=== PATIENT | male | born 1980 | race Caucasian/White ===

== ENCOUNTER 2017-02-24 23:22 | Emergency (ER) | payer OTHER ==
[2017-02-25 00:32] VITALS: BP 155/89
== END 2017-02-25 00:34 | disposition other institution (70) ==
LOC: ED 23:22
DX: F10.129 Alcohol abuse with intoxication, unspecified (principal)
CPT/HCPCS: Q0162

== ENCOUNTER 2017-02-24 23:22 | Emergency (ER) | payer OTHER | END 2017-02-25 00:33 | disposition other institution (70) | LOC: ED 23:22 | DX: Z02.89 Encounter for other administrative examinations (principal); F10.129 Alcohol abuse with intoxication, unspecified ==

== ENCOUNTER 2017-05-14 12:28 | Emergency (ER) | payer OTHER ==
[~2017-05-14] VITALS: Ht 195.6 cm; Wt 103.0 kg
[2017-05-14 14:44] VITALS: BP 136/89
== END 2017-05-14 14:44 | disposition home or self-care (01) ==
LOC: ED 12:28
DX: K43.9 Ventral hernia without obstruction or gangrene (principal); K21.9 Gastro-esophageal reflux disease without esophagitis; R50.9 Fever, unspecified

== ENCOUNTER 2017-05-19 15:10 | Emergency (ER) | payer OTHER ==
[2017-05-19 18:20] VITALS: BP 136/98
== END 2017-05-19 18:20 | disposition home or self-care (01) ==
LOC: ED 15:10
DX: K43.9 Ventral hernia without obstruction or gangrene (principal)

== ENCOUNTER 2017-06-04 21:04 | Inpatient (IN) | payer OTHER ==
[~2017-06-04] VITALS: Ht 195.6 cm; Wt 110.0 kg
[2017-06-04 21:44] LABS: PLATELET COUNT 199 x10^3mcL (130-400)
[2017-06-04 21:47] LABS: CALCIUM 9.3 mg/dL (8.5-10.1); CARBON DIOXIDE 28.1 mmol/L (21-32); CHLORIDE SERUM 97 mmol/L (98-107); CREATININE SERUM 0.9 mg/dL (0.7-1.3); GFR1 > 60 mL/min; GLUCOSE SERUM 110 mg/dL (74-106); POTASSIUM SERUM 3.9 mmol/L (3.5-5.1); SODIUM SERUM 138 mmol/L (136-145)
[2017-06-04 21:53] LABS: ALKALINE PHOSPHATASE 118 U/L (46-116); ALT/SGPT 52 U/L (16-63); AST/SGOT 79 U/L (15-37); BILIRUBIN TOTAL 1.6 mg/dL (0.20-1.00); TOTAL PROTEIN, SERUM 8.2 g/dL (6.4-8.2)
[2017-06-04 21:55] LABS: CHOLESTEROL 357 mg/dL (<200)
[2017-06-04 21:56] LABS: RED CELL DISTRIBUTION WIDTH 18.4 % (11.5-14.5)
[2017-06-04] MEDS ORDERED: XANAX0.5 MG PO (22:27)
[2017-06-04] MEDS ORDERED: NOR10T PO (22:27)
[2017-06-04] MEDS ORDERED: ATENOLOL50 MG PO (22:28)
[2017-06-04 22:37] LABS: BAND NEUTROPHIL 2 % (0-10); MONOCYTE 3 % (0-7); SEGMENTED NEUTROPHILS 60 % (37-75); rbc morphology (normal/abnorm) ABNORMAL (NORMAL)
[2017-06-04 23:05] LABS: T3 TOTAL 1.16 ng/mL
[2017-06-04 23:06] LABS: MAGNESIUM 1.6 mg/dL (1.8-2.4); PHOSPHOROUS 3.2 mg/dL (2.5-4.9)
[2017-06-04 23:07] LABS: CHOLESTEROL/HDL RATIO 2.3
[2017-06-04 23:11] VITALS: BP 124/88
[2017-06-04 23:17] LABS: FREE THYROXINE INDEX 2.9 ug/dL (1.4-4.5); T4(THYROXINE) 7.7 ug/dL (4.7-13.3)
[2017-06-04 23:25] VITALS: BP 124/88
[2017-06-05 04:49] VITALS: BP 123/85
[2017-06-05 05:46] LABS: UA SPECIFIC GRAVITY 1.015 (1.005-1.035); microscopic required? YES; urine erythrocyte 1+ (NEGATIVE)
[2017-06-05 05:52] LABS: AMPHETAMINE QUAL UR NONE DETECTED (NEG <=1000)
[2017-06-05 06:29] LABS: BASOPHIL % 0.7 % (0-2); PLATELET COUNT 174 x10^3mcL (130-400)
[2017-06-05 06:36] LABS: RED CELL DISTRIBUTION WIDTH 17.8 % (11.5-14.5)
[2017-06-05 06:52] LABS: CARBON DIOXIDE 27.7 mmol/L (21-32); CHLORIDE SERUM 100 mmol/L (98-107); CREATININE SERUM 0.8 mg/dL (0.7-1.3); GFR1 > 60 mL/min; GLUCOSE SERUM 90 mg/dL (74-106); MAGNESIUM 3.4 mg/dL (1.8-2.4); PHOSPHOROUS 2.7 mg/dL (2.5-4.9); POTASSIUM SERUM 3.5 mmol/L (3.5-5.1); SODIUM SERUM 136 mmol/L (136-145)
[2017-06-05 09:32] VITALS: BP 114/86
[2017-06-05 17:48] VITALS: BP 141/86
[2017-06-05 19:46] VITALS: BP 135/95
[2017-06-05 23:14] VITALS: BP 122/65
[2017-06-06 04:20] VITALS: BP 129/56
[2017-06-06 05:38] LABS: PLATELET COUNT 187 x10^3mcL (130-400)
[2017-06-06 05:46] LABS: BASOPHIL % 0 % (0-2); RED CELL DISTRIBUTION WIDTH 17.5 % (11.5-14.5)
[2017-06-06 05:49] LABS: CALCIUM 9.7 mg/dL (8.5-10.1); CARBON DIOXIDE 22.2 mmol/L (21-32); CHLORIDE SERUM 103 mmol/L (98-107); CREATININE SERUM 0.9 mg/dL (0.7-1.3); GFR1 > 60 mL/min; GLUCOSE SERUM 88 mg/dL (74-106); MAGNESIUM 2.2 mg/dL (1.8-2.4); PHOSPHOROUS 2.6 mg/dL (2.5-4.9); POTASSIUM SERUM 3.6 mmol/L (3.5-5.1); SODIUM SERUM 142 mmol/L (136-145)
[2017-06-06 08:00] VITALS: BP 141/92
[2017-06-06 12:23] VITALS: BP 121/83
[2017-06-06 16:00] VITALS: BP 165/87
[2017-06-06 20:00] VITALS: BP 129/83
[2017-06-07] VITALS (11 sets, daily range): BP systolic 81–152; BP diastolic 42–96
[2017-06-07 05:48] LABS: PLATELET COUNT 198 x10^3mcL (130-400)
[2017-06-07 05:59] LABS: CALCIUM 9.5 mg/dL (8.5-10.1); CARBON DIOXIDE 11.1 mmol/L (21-32); CHLORIDE SERUM 111 mmol/L (98-107); CREATININE SERUM 1.3 mg/dL (0.7-1.3); GFR1 > 60 mL/min; GLUCOSE SERUM 72 mg/dL (74-106); POTASSIUM SERUM 3.9 mmol/L (3.5-5.1); SODIUM SERUM 150 mmol/L (136-145)
[2017-06-07 06:02] LABS: RED CELL DISTRIBUTION WIDTH 17.7 % (11.5-14.5)
[2017-06-07 06:03] LABS: BASOPHIL % 0 % (0-2)
[2017-06-07] MEDS ORDERED: MORPHINE SULFAT15 MG (13:37)
[2017-06-08] VITALS (19 sets, daily range): BP systolic 100–140; BP diastolic 55–87
[2017-06-08 05:52] LABS: BASOPHIL % 0.1 % (0-2); PLATELET COUNT 198 x10^3mcL (130-400)
[2017-06-08 05:55] LABS: RED CELL DISTRIBUTION WIDTH 17.3 % (11.5-14.5)
[2017-06-08 05:58] LABS: CALCIUM 7.8 mg/dL (8.5-10.1); CARBON DIOXIDE 19.5 mmol/L (21-32); CREATININE SERUM 3.6 mg/dL (0.7-1.3); POTASSIUM SERUM 3.5 mmol/L (3.5-5.1)
[2017-06-09] VITALS (17 sets, daily range): BP systolic 113–134; BP diastolic 60–86
[2017-06-09 05:12] LABS: BASOPHIL % 0.1 % (0-2); PLATELET COUNT 195 x10^3mcL (130-400)
[2017-06-09 05:18] LABS: RED CELL DISTRIBUTION WIDTH 17.6 % (11.5-14.5)
[2017-06-09 05:19] LABS: CALCIUM 8.2 mg/dL (8.5-10.1); MAGNESIUM 2.5 mg/dL (1.8-2.4); PHOSPHOROUS 5.3 mg/dL (2.5-4.9); POTASSIUM SERUM 3.2 mmol/L (3.5-5.1)
[2017-06-09 05:27] LABS: CREATININE SERUM 4.1 mg/dL (0.7-1.3)
[2017-06-10] VITALS (7 sets, daily range): BP systolic 129–164; BP diastolic 77–94; Ht 195.6 cm; Wt 110.0 kg
[2017-06-10 04:59] LABS: CALCIUM 8.9 mg/dL (8.5-10.1); CARBON DIOXIDE 25.8 mmol/L (21-32); CREATININE SERUM 3.4 mg/dL (0.7-1.3); MAGNESIUM 2.3 mg/dL (1.8-2.4); PHOSPHOROUS 3.1 mg/dL (2.5-4.9); POTASSIUM SERUM 3.5 mmol/L (3.5-5.1)
[2017-06-10 05:01] LABS: BASOPHIL % 0.4 % (0-2); PLATELET COUNT 203 x10^3mcL (130-400)
[2017-06-10 05:06] LABS: RED CELL DISTRIBUTION WIDTH 17.4 % (11.5-14.5)
[2017-06-11 05:38] VITALS: BP 143/88
[2017-06-11 06:58] LABS: CALCIUM 8.9 mg/dL (8.5-10.1); CARBON DIOXIDE 24.9 mmol/L (21-32); CREATININE SERUM 2.5 mg/dL (0.7-1.3); PHOSPHOROUS 2.7 mg/dL (2.5-4.9)
[2017-06-11 06:59] LABS: POTASSIUM SERUM 2.9 mmol/L (3.5-5.1)
[2017-06-11 07:05] LABS: BASOPHIL % 0.4 % (0-2); PLATELET COUNT 219 x10^3mcL (130-400)
[2017-06-11 07:28] LABS: RED CELL DISTRIBUTION WIDTH 17.4 % (11.5-14.5)
[2017-06-11 09:26] VITALS: BP 128/68
[2017-06-11 13:37] VITALS: BP 143/96
[2017-06-11 13:53] VITALS: BP 128/68
[2017-06-11 14:44] LABS: CALCIUM 8.8 mg/dL (8.5-10.1); CARBON DIOXIDE 23.8 mmol/L (21-32); CREATININE SERUM 2.4 mg/dL (0.7-1.3); POTASSIUM SERUM 3.1 mmol/L (3.5-5.1)
[2017-06-11 17:18] VITALS: BP 143/99
== END 2017-06-11 18:28 | disposition home or self-care (01) | DRG 282 ==
LOC: ED 21:04 → IC 22:16 → DU 22:16 → IC 06-05 17:23 → DU 06-05 18:10 → IC 06-05 18:20 → DU 06-10 15:54
PROVIDERS: Specialist; ADMIT Family Medicine
PROC: 5A1945Z Respiratory Ventilation, 24-96 Consecutive Hours (ICD-10-PCS; principal; 2017-06-07)
PROC: 0BH17EZ Insertion of Endotracheal Airway into Trachea, Via Natural or Artificial Opening (ICD-10-PCS; 2017-06-07)
PROC: 02HV33Z Insertion of Infusion Device into Superior Vena Cava, Percutaneous Approach (ICD-10-PCS; 2017-06-07)
PROC: B548ZZA Ultrasonography of Superior Vena Cava, Guidance (ICD-10-PCS; 2017-06-07)
DX: K85.90 Acute pancreatitis without necrosis or infection, unspecified (principal); N17.0 Acute kidney failure with tubular necrosis; J96.01 Acute respiratory failure with hypoxia; J69.0 Pneumonitis due to inhalation of food and vomit; G92 Toxic encephalopathy; R56.9 Unspecified convulsions; F10.231 Alcohol dependence with withdrawal delirium; E83.42 Hypomagnesemia; I10 Essential (primary) hypertension; E78.5 Hyperlipidemia, unspecified; R74.0 Nonspecific elevation of levels of transaminase and lactic acid dehydrogenase [LDH]; G90.9 Disorder of the autonomic nervous system, unspecified; K43.2 Incisional hernia without obstruction or gangrene; F41.1 Generalized anxiety disorder; I16.0 Hypertensive urgency; E83.41 Hypermagnesemia; R65.10 Systemic inflammatory response syndrome (SIRS) of non-infectious origin without acute organ dysfunction; E87.2 Acidosis; D64.9 Anemia, unspecified; E87.8 Other disorders of electrolyte and fluid balance, not elsewhere classified; E87.0 Hyperosmolality and hypernatremia; E87.6 Hypokalemia; E83.39 Other disorders of phosphorus metabolism; M62.82 Rhabdomyolysis
CPT/HCPCS: 36556; 36600; 83880; 84439; 97110-GP; A4628; G0480; J0360; J1200; J1630; J1642; J2060; J2250; J2270; J2405; J2543; J2704; J3411; J3475; J3480; J3486; J3490; J7030; J7040; Q0092

== ENCOUNTER 2017-08-02 21:15 | Inpatient (IN) | payer OTHER ==
[~2017-08-02] VITALS: Ht 195.6 cm; Wt 102.1 kg
[~2017-08-02 21:15] MED LIST: ATENOLOL50 MG PO; MORPHINE SULFAT15 MG; NOR10T PO; XANAX0.5 MG PO
[2017-08-02 21:21] VITALS: Ht 195.6 cm; Wt 102.1 kg
[2017-08-02 22:27] LABS: BASOPHIL % 0.3 % (0-2)
[2017-08-02 22:35] LABS: PLATELET COUNT 96 x10^3mcL (130-400); RED CELL DISTRIBUTION WIDTH 17.1 % (11.5-14.5)
[2017-08-02 22:42] LABS: CALCIUM 8.1 mg/dL (8.5-10.1); CARBON DIOXIDE 23.8 mmol/L (21-32); CHLORIDE SERUM 99 mmol/L (98-107); CREATININE SERUM 0.7 mg/dL (0.7-1.3); GFR1 > 60 mL/min; GLUCOSE SERUM 110 mg/dL (74-106); POTASSIUM SERUM 3.5 mmol/L (3.5-5.1); SODIUM SERUM 138 mmol/L (136-145)
[2017-08-02 22:49] LABS: ALBUMIN 3.9 g/dL (3.4-5.0); ALKALINE PHOSPHATASE 135 U/L (46-116); ALT/SGPT 29 U/L (16-63); AST/SGOT 91 U/L (15-37); BILIRUBIN TOTAL 0.9 mg/dL (0.20-1.00); TOTAL PROTEIN, SERUM 8.1 g/dL (6.4-8.2)
[2017-08-02 22:51] LABS: CHOLESTEROL 230 mg/dL (<200)
[2017-08-02 22:52] LABS: T3 TOTAL 0.74 ng/mL
[2017-08-02 23:27] LABS: FREE T4 0.76 ng/dL (0.76-1.46); T4(THYROXINE) 5.3 ug/dL (4.7-13.3)
[2017-08-02 23:37] LABS: AMPHETAMINE QUAL UR NONE DETECTED (NEG <=1000)
[2017-08-02 23:47] VITALS: BP 138/93
[2017-08-02 23:56] VITALS: BP 139/93
[2017-08-03 00:41] LABS: MAGNESIUM 1.8 mg/dL (1.8-2.4); PHOSPHOROUS 3.2 mg/dL (2.5-4.9)
[2017-08-03 02:44] LABS: UA SPECIFIC GRAVITY <=1.005 (1.005-1.035); microscopic required? YES; urine erythrocyte 1+ (NEGATIVE)
[2017-08-03 03:50] LABS: BASOPHIL % 0.2 % (0-2)
[2017-08-03 03:57] LABS: PLATELET COUNT 85 x10^3mcL (130-400); RED CELL DISTRIBUTION WIDTH 17.6 % (11.5-14.5)
[2017-08-03 04:14] LABS: CALCIUM 7.9 mg/dL (8.5-10.1); CARBON DIOXIDE 26.4 mmol/L (21-32); CHLORIDE SERUM 100 mmol/L (98-107); CREATININE SERUM 0.7 mg/dL (0.7-1.3); GFR1 > 60 mL/min; GLUCOSE SERUM 97 mg/dL (74-106); POTASSIUM SERUM 3.5 mmol/L (3.5-5.1); SODIUM SERUM 139 mmol/L (136-145)
[2017-08-03 05:37] VITALS: BP 106/66
[2017-08-03 09:56] VITALS: BP 105/69
[2017-08-03 17:55] VITALS: BP 131/82
[2017-08-03 19:25] VITALS: BP 138/79
[2017-08-04 05:33] VITALS: BP 125/84
[2017-08-04 07:22] LABS: BASOPHIL % 0.1 % (0-2)
[2017-08-04 07:52] LABS: CALCIUM 9.2 mg/dL (8.5-10.1); CARBON DIOXIDE 25.9 mmol/L (21-32); CHLORIDE SERUM 97 mmol/L (98-107); CREATININE SERUM 0.6 mg/dL (0.7-1.3); GFR1 > 60 mL/min; GLUCOSE SERUM 111 mg/dL (74-106); MAGNESIUM 1.6 mg/dL (1.8-2.4); PHOSPHOROUS 3.2 mg/dL (2.5-4.9); POTASSIUM SERUM 3.2 mmol/L (3.5-5.1); SODIUM SERUM 132 mmol/L (136-145)
[2017-08-04 08:36] LABS: PLATELET COUNT 94 x10^3mcL (130-400); RED CELL DISTRIBUTION WIDTH 16.7 % (11.5-14.5)
[2017-08-04 09:03] VITALS: BP 114/79
[2017-08-04 17:37] VITALS: BP 120/87
[2017-08-04 20:59] VITALS: BP 120/77
[2017-08-05 05:40] VITALS: BP 121/86
[2017-08-05 08:01] LABS: CALCIUM 8.9 mg/dL (8.5-10.1); CARBON DIOXIDE 23.3 mmol/L (21-32); CHLORIDE SERUM 102 mmol/L (98-107); CREATININE SERUM 0.6 mg/dL (0.7-1.3); GFR1 > 60 mL/min; GLUCOSE SERUM 100 mg/dL (74-106); MAGNESIUM 1.9 mg/dL (1.8-2.4); PHOSPHOROUS 3.8 mg/dL (2.5-4.9); POTASSIUM SERUM 3.9 mmol/L (3.5-5.1); SODIUM SERUM 138 mmol/L (136-145)
[2017-08-05 08:54] VITALS: BP 110/74
[2017-08-05 09:20] LABS: BASOPHIL % 0.3 % (0-2); PLATELET COUNT 134 x10^3mcL (130-400)
[2017-08-05 09:59] VITALS: BP 110/74
[2017-08-05] MEDS ORDERED: PHARMASSURE FO0.4 MG PO (10:11)
[2017-08-05] MEDS ORDERED: THIAMINE HCL50 MG PO (10:11)
[2017-08-05] MEDS ORDERED: NATURE'S BLEND1 TA4 PO (10:12)
== END 2017-08-05 11:07 | disposition home or self-care (01) | DRG 773 ==
LOC: ED 21:15 → DU 23:05 → MU 08-03 12:34
PROVIDERS: Family Medicine; Specialist
DX: F10.229 Alcohol dependence with intoxication, unspecified (principal); F11.20 Opioid dependence, uncomplicated; N17.0 Acute kidney failure with tubular necrosis; G92 Toxic encephalopathy; K70.0 Alcoholic fatty liver; D69.59 Other secondary thrombocytopenia; K43.2 Incisional hernia without obstruction or gangrene; E78.5 Hyperlipidemia, unspecified; T51.0X1A Toxic effect of ethanol, accidental (unintentional), initial encounter; Z85.828 Personal history of other malignant neoplasm of skin; F17.200 Nicotine dependence, unspecified, uncomplicated; D64.9 Anemia, unspecified
CPT/HCPCS: 83880; 84439; 97110-GP; G0480; J2060; J2405; J3411; J3475; J3490; J7030

== ENCOUNTER 2018-01-13 18:10 | Inpatient (IN) | payer OTHER ==
[~2018-01-13] VITALS: Ht 195.6 cm; Wt 110.8 kg
[~2018-01-13 18:10] MED LIST changes: +NATURE'S BLEND1 TA4 PO; +PHARMASSURE FO0.4 MG PO; +THIAMINE HCL50 MG PO
[2018-01-13 19:51] LABS: CALCIUM 8.3 mg/dL (8.5-10.1); CARBON DIOXIDE 24.9 mmol/L (21-32); CHLORIDE SERUM 104 mmol/L (98-107); CREATININE SERUM 0.8 mg/dL (0.7-1.3); GFR1 > 60 mL/min; GLUCOSE SERUM 100 mg/dL (74-106); POTASSIUM SERUM 3.7 mmol/L (3.5-5.1); SODIUM SERUM 143 mmol/L (136-145)
[2018-01-13 19:52] LABS: BASOPHIL % 2.2 % (0-2); RED CELL DISTRIBUTION WIDTH 15.9 % (11.5-14.5)
[2018-01-13 19:53] LABS: PLATELET COUNT 114 x10^3mcL (130-400)
[2018-01-13] MEDS ORDERED: ATENOLOL50 MG PO (20:02)
[2018-01-13 20:04] LABS: ALBUMIN 3.7 g/dL (3.4-5.0); ALKALINE PHOSPHATASE 133 U/L (46-116); ALT/SGPT 51 U/L (16-63); AST/SGOT 63 U/L (15-37); BILIRUBIN TOTAL 0.7 mg/dL (0.20-1.00); FREE T4 0.73 ng/dL (0.76-1.46); TOTAL PROTEIN, SERUM 7.5 g/dL (6.4-8.2)
[2018-01-13 20:07] LABS: microscopic required? YES; urine erythrocyte TRACE (NEGATIVE)
[2018-01-13 20:15] LABS: AMPHETAMINE QUAL UR NONE DETECTED (See below)
[2018-01-13 21:50] LABS: CHOLESTEROL/HDL RATIO 3.2; MAGNESIUM 1.8 mg/dL (1.8-2.4); PHOSPHOROUS 3.4 mg/dL (2.5-4.9)
[2018-01-13 22:13] VITALS: BP 127/87
[2018-01-13 23:33] VITALS: BP 112/80
[2018-01-13 23:57] VITALS: BP 132/94
[2018-01-14 05:27] VITALS: BP 100/68
[2018-01-14 06:47] LABS: CALCIUM 8.5 mg/dL (8.5-10.1); CARBON DIOXIDE 22.2 mmol/L (21-32); CHLORIDE SERUM 101 mmol/L (98-107); CREATININE SERUM 0.8 mg/dL (0.7-1.3); GFR1 > 60 mL/min; GLUCOSE SERUM 75 mg/dL (74-106); MAGNESIUM 1.6 mg/dL (1.8-2.4); PHOSPHOROUS 3.4 mg/dL (2.5-4.9); POTASSIUM SERUM 3.5 mmol/L (3.5-5.1); SODIUM SERUM 138 mmol/L (136-145)
[2018-01-14 07:05] LABS: IRON 54 ug/dL (65-170); TOTAL IRON BINDING CAPACITY 306 ug/dL (250-450)
[2018-01-14 07:35] LABS: BASOPHIL % 0.5 % (0-2); PLATELET COUNT 151 x10^3mcL (130-400); RED BLOOD CELLS 4.41 M/mm3 (4.52-5.90)
[2018-01-14 07:39] LABS: RED CELL DISTRIBUTION WIDTH 15.3 % (11.5-14.5)
[2018-01-14 09:29] VITALS: BP 130/81
[2018-01-14 13:13] VITALS: BP 117/76
[2018-01-14 16:37] VITALS: BP 125/75
[2018-01-14 20:14] VITALS: BP 139/83
[2018-01-15 03:21] VITALS: BP 137/88
[2018-01-15 05:27] VITALS: BP 122/77
[2018-01-15 06:07] LABS: BASOPHIL % 0.2 % (0-2); PLATELET COUNT 154 x10^3mcL (130-400)
[2018-01-15 06:12] LABS: CALCIUM 8.6 mg/dL (8.5-10.1); CARBON DIOXIDE 26.6 mmol/L (21-32); CHLORIDE SERUM 101 mmol/L (98-107); CREATININE SERUM 0.8 mg/dL (0.7-1.3); GFR1 > 60 mL/min; GLUCOSE SERUM 95 mg/dL (74-106); PHOSPHOROUS 3.8 mg/dL (2.5-4.9); POTASSIUM SERUM 3.8 mmol/L (3.5-5.1); SODIUM SERUM 137 mmol/L (136-145)
[2018-01-15 06:37] LABS: RED CELL DISTRIBUTION WIDTH 15.4 % (11.5-14.5)
[2018-01-15 08:52] VITALS: BP 112/71
[2018-01-15 12:52] VITALS: BP 116/79
[2018-01-15 15:17] VITALS: Ht 195.6 cm; Wt 110.8 kg
[2018-01-15 16:41] VITALS: BP 116/77
[2018-01-15 20:57] VITALS: BP 117/78
[2018-01-16 05:37] VITALS: BP 119/74
[2018-01-16 06:33] LABS: BASOPHIL % 0.3 % (0-2); PLATELET COUNT 177 x10^3mcL (130-400)
[2018-01-16 06:38] LABS: RED CELL DISTRIBUTION WIDTH 15.7 % (11.5-14.5)
[2018-01-16 06:52] LABS: CALCIUM 8.7 mg/dL (8.5-10.1); CARBON DIOXIDE 25.7 mmol/L (21-32); CHLORIDE SERUM 102 mmol/L (98-107); CREATININE SERUM 0.9 mg/dL (0.7-1.3); GFR1 > 60 mL/min; GLUCOSE SERUM 122 mg/dL (74-106); MAGNESIUM 1.9 mg/dL (1.8-2.4); PHOSPHOROUS 4.3 mg/dL (2.5-4.9); POTASSIUM SERUM 3.7 mmol/L (3.5-5.1); SODIUM SERUM 138 mmol/L (136-145)
[2018-01-16 09:19] VITALS: BP 143/79
[2018-01-16] MEDS ORDERED: LIB25 PO (14:41)
[2018-01-16] MEDS ORDERED: ATIVAN2 MG PO (14:43)
[2018-01-16] MEDS ORDERED: MOBIC15 MG PO (15:02)
[2018-01-16 15:17] VITALS: BP 143/79
== END 2018-01-16 17:03 | disposition home or self-care (01) | DRG 469 ==
LOC: ED 18:10 → DU 21:10
PROVIDERS: Emergency Medicine; Family Medicine; Internal Medicine
DX: N17.0 Acute kidney failure with tubular necrosis (principal); D69.6 Thrombocytopenia, unspecified; F10.239 Alcohol dependence with withdrawal, unspecified; Y90.6 Blood alcohol level of 120-199 mg/100 ml; K08.9 Disorder of teeth and supporting structures, unspecified; D72.819 Decreased white blood cell count, unspecified; E83.51 Hypocalcemia; E78.5 Hyperlipidemia, unspecified; K04.7 Periapical abscess without sinus; F32.9 Major depressive disorder, single episode, unspecified; Z68.28 Body mass index [BMI] 28.0-28.9, adult; Z72.0 Tobacco use; I10 Essential (primary) hypertension
CPT/HCPCS: 83880; 84439; C9113; G0480; J2060; J2405; J3411; J3475; J3490; J7030; Q0092

== ENCOUNTER 2018-01-28 20:26 | Emergency (ER) | payer OTHER ==
[~2018-01-28] VITALS: Ht 195.6 cm; Wt 111.8 kg
[~2018-01-28 20:26] MED LIST changes: +ATIVAN2 MG PO; +LIB25 PO; +MOBIC15 MG PO
[2018-01-28 20:46] VITALS: BP 150/91; Ht 195.6 cm; Wt 111.8 kg
== END 2018-01-28 21:47 | disposition left against medical advice (07) ==
LOC: ED 20:26
DX: Z53.21 Procedure and treatment not carried out due to patient leaving prior to being seen by health care provider (principal)

== ENCOUNTER 2018-02-07 17:07 | Emergency (ER) | payer OTHER ==
[~2018-02-07] VITALS: Ht 193 cm; Wt 109.5 kg
[2018-02-07 17:37] VITALS: Ht 193 cm; Wt 109.5 kg
[2018-02-07 19:58] VITALS: BP 136/89
== END 2018-02-07 19:58 | disposition home or self-care (01) ==
LOC: ED 17:07
DX: F10.20 Alcohol dependence, uncomplicated (principal); H02.005 Unspecified entropion of left lower eyelid; F17.200 Nicotine dependence, unspecified, uncomplicated; I10 Essential (primary) hypertension; Z85.828 Personal history of other malignant neoplasm of skin

== ENCOUNTER 2019-04-17 14:34 | Emergency (ER) | payer OTHER ==
[~2019-04-17] VITALS: Ht 193 cm; Wt 130.2 kg
[2019-04-17 14:46] VITALS: Ht 193 cm; Wt 130.2 kg
[2019-04-17 17:02] VITALS: BP 149/80
== END 2019-04-17 17:02 | disposition home or self-care (01) ==
LOC: ED 14:34
DX: S20.212A Contusion of left front wall of thorax, initial encounter (principal); V29.49XA Motorcycle driver injured in collision with other motor vehicles in traffic accident, initial encounter; Y93.55 Activity, bike riding; Y92.413 State road as the place of occurrence of the external cause; Y99.8 Other external cause status; I10 Essential (primary) hypertension; Z98.890 Other specified postprocedural states

== ENCOUNTER 2019-04-20 10:37 | Emergency (ER) | payer OTHER ==
[~2019-04-20] VITALS: Ht 195.6 cm; Wt 130.2 kg
[2019-04-20 10:47] VITALS: Ht 195.6 cm; Wt 130.2 kg
[2019-04-20 11:19] VITALS: BP 112/80
== END 2019-04-20 11:19 | disposition home or self-care (01) ==
LOC: ED 10:37
DX: S29.9XXD Unspecified injury of thorax, subsequent encounter (principal); I10 Essential (primary) hypertension; Z85.828 Personal history of other malignant neoplasm of skin; X58.XXXD Exposure to other specified factors, subsequent encounter

== ENCOUNTER 2019-06-17 18:19 | Emergency (ER) | payer OTHER ==
[~2019-06-17] VITALS: Ht 195.6 cm; Wt 127.0 kg
[2019-06-17 18:24] VITALS: Ht 195.6 cm; Wt 127.0 kg
[2019-06-17 18:55] LABS: AMPHETAMINE QUAL UR NONE DETECTED (See below)
[2019-06-17 18:59] LABS: BASOPHIL % 0.5 % (0-2); PLATELET COUNT 279 x10^3mcL (130-400)
[2019-06-17 19:00] LABS: RED CELL DISTRIBUTION WIDTH 16.6 % (11.5-14.5)
[2019-06-17 19:04] LABS: CALCIUM 8.8 mg/dL (8.5-10.1); CARBON DIOXIDE 27.2 mmol/L (21-32); CHLORIDE SERUM 99 mmol/L (98-107); CREATININE SERUM 0.9 mg/dL (0.7-1.3); GFR1 > 60 mL/min; GLUCOSE SERUM 99 mg/dL (74-106); POTASSIUM SERUM 3.4 mmol/L (3.5-5.1); SODIUM SERUM 135 mmol/L (136-145)
[2019-06-17 19:08] LABS: ALBUMIN 3.4 g/dL (3.4-5.0); ALKALINE PHOSPHATASE 135 U/L (46-116); ALT/SGPT 99 U/L (16-63); AST/SGOT 151 U/L (15-37); BILIRUBIN TOTAL 1.2 mg/dL (0.20-1.00); TOTAL PROTEIN, SERUM 7.5 g/dL (6.4-8.2)
[2019-06-17 20:52] VITALS: BP 137/94
== END 2019-06-17 20:52 | disposition home or self-care (01) ==
LOC: ED 18:19
PROVIDERS: Emergency Medicine
DX: F10.239 Alcohol dependence with withdrawal, unspecified (principal); I10 Essential (primary) hypertension; Z98.890 Other specified postprocedural states
CPT/HCPCS: 36415; G0480; J3411

== ENCOUNTER 2020-06-02 16:46 | Emergency (ER) | payer OTHER | END 2020-06-02 17:33 | disposition other institution (70) | LOC: ED 16:46 | DX: Z02.89 Encounter for other administrative examinations (principal) ==

== ENCOUNTER 2020-06-02 16:46 | Emergency (ER) | payer OTHER ==
[~2020-06-02] VITALS: Ht 182.9 cm; Wt 117.9 kg
[2020-06-02 17:03] VITALS: Ht 182.9 cm; Wt 117.9 kg
[2020-06-02 17:33] VITALS: BP 153/79
== END 2020-06-02 17:33 | disposition other institution (70) ==
LOC: ED 16:46
DX: S00.81XA Abrasion of other part of head, initial encounter (principal); S60.417A Abrasion of left little finger, initial encounter; I10 Essential (primary) hypertension; R03.0 Elevated blood-pressure reading, without diagnosis of hypertension; X58.XXXA Exposure to other specified factors, initial encounter; Y93.89 Activity, other specified; Y92.89 Other specified places as the place of occurrence of the external cause; Y99.8 Other external cause status